=== PATIENT | female | born 1960 | race Caucasian/White ===

== ENCOUNTER → 2018-03-12 | Outpatient (CLI) | payer BC ==
[~2018-03-12] MED LIST: CHANTIX STARTER1 TAB PO; ECONAZOLE TP; FOLIC ACID 40400 MCG PO; LORTAB ELIX0.5 MG/ML PO; METHIMAZOLE5 MG PO; PRILOTC PO; REGLAN 5MG T5 MG/TAB PO; TAPAZOLE5 MG PO; VITAMIN C500 MG PO
== END ==
LOC: COL.RAD 08:48
DX: M25.551 Pain in right hip (principal)
CPT/HCPCS: J3301; Q9967

== ENCOUNTER → 2019-03-10 | Outpatient (CLI) | payer BC | LOC: COL.RAD 12:21 | DX: M16.11 Unilateral primary osteoarthritis, right hip (principal) | CPT/HCPCS: J3301; Q9967 ==

== ENCOUNTER 2019-10-15 12:41 | Inpatient (IN) | payer BC ==
[~2019-10-15] VITALS: Ht 172.7 cm; Wt 107.8 kg
[~2019-10-15 12:41] MED LIST changes: -LORTAB ELIX0.5 MG/ML PO; -METHIMAZOLE5 MG PO; +NORCO 325 MG-7.1 TAB PO; +TAPAZOLE10 MG PO
[2020-04-28] VITALS (12 sets, daily range): BP systolic 137–152; BP diastolic 57–84; PULSE 64–83; TEMP 97.3–97.8
[2020-04-28] MEDS ORDERED: SYMJEPI0.3 MG/0.3 IJ (03:28)
[2020-04-28] MEDS ORDERED: HCTZ 25MG TAB25 MG PO (03:29)
[2020-04-28] MEDS ORDERED: IRON TABLETS325 MG PO (03:29)
[2020-04-28] MEDS ORDERED: ZESTRIL 20MG TA20 MG PO (03:30)
[2020-04-28] MEDS ORDERED: GLUCOPHAGE XR500 M1 PO (03:30)
[2020-04-28] MEDS ORDERED: SLOW-MAG71.5 MG PO (03:32)
[2020-04-28] MEDS ORDERED: VITAMIN D 400400 IU PO (03:32)
[2020-04-28] MEDS ORDERED: DUTOPROL 12.5 M1 TE1 PO (03:32)
--- NOTE | 2020-04-28 06:05 | NUR ---
Pt. arrived to the floor. Pt. is A&OX3, assessment complete. INT started to lt. forearm. Pre-op procedures completed.
--- NOTE | 2020-04-28 12:10 | NUR ---
PATIENT BACK IN ROOM 331 POST OP RTH. ORIENTED BUT DROWSY. VSS. PACU REPORTS THEY HAD TO GIVE HER NARCAN DUE TO LONG PERIODS OF APNEA AFTER GETTING DILAUDID FOR PAIN. RATES PAIN IN RLE AT 3-4 ON PAIN SCALE. ORIENTED BUT DROWSY. RLE DRESSING IS CD&I WITH OCCLUSIVE TAPE. ICE PACK TO RIGHT HIP. TEDS & SCD'S TO BLE. POSITIVE PEDAL PULSES TO BLE. NO MARINELLI. NO C/O N/V. IV FLUIDS INFUSING INTO LEFT FORARM IV VIA PUMP. LIQUIDS AT BEDSIDE. HEAD TO TOE ASSESSMENT WNL. NO OTHER NEEDS. CALL LIGHT IN REACH.
--- NOTE | 2020-04-28 15:04 | NUR ---
[employer] met with patient to discuss discharge planning. Patient lives in [place] with her , Silver (ph#[phone]) and sees Dr. Evans for primary care. Patient obtains medications from [facility] in [place] with no difficulties. Patient has a front wheeled walker and no other DME. Patient reports she is normally independent with ADLS and plans to return home upon discharge. Patient does not have Advance Directives and is not interested in setting them up at this time. SW will continue to follow.
--- NOTE | 2020-04-28 20:00 | NUR ---
Report received, assumed care for shift commander. Assessment complete. VS stable. A&Ox3. Denies shortness of breath/nausea. Rating pain 4/10 on pain scale to right hip-described as constant ache-denies need for intervention. Dressing to right hip-bulky with foam tape-CDI. SCDs/TEDs bilat. Fresh ice pack applied. Plan of care discussed for this shift to include ambulation/pain control. Verbalizes understanding. Call light in reach. Will monitor.
[2020-04-29 03:58] VITALS: BP 138/62; PULSE 79; TEMP 98.5
--- NOTE | 2020-04-29 04:20 | NUR ---
Rested well this shift. PO oxycodone 5mg with good pain relief. Denied nausea/shortness of breath. Has been up out of bed-tolerated well. Tolerating PO-IV fluids NS@75ml/hr. SCD/DIANN bilat. Dressing to right hip CDI. Ice applied. Denies current needs. Call light in reach. Will monitor.
[2020-04-29 06:18] LABS: HEMOGLOBIN 11.7 g/dl (12.5-16.0)
[2020-04-29 07:55] VITALS: BP 145/69; PULSE 102; TEMP 98.7
--- NOTE | 2020-04-29 09:35 | NUR ---
PT UP TO RECLINER AFTER USING BR. SBAX1. AMBULATES WITH STEADY GAIT. PAIN CONTROLLED WITH PO MEDS. EATING AND DRINKING WITH NO N/V.
[2020-04-29 11:22] VITALS: BP 129/56; PULSE 84; TEMP 97.9
--- NOTE | 2020-04-29 12:08 | NUR ---
First visit from the playground equipment erector. No needs right now.
[2020-04-29 16:25] VITALS: BP 145/59; PULSE 81; TEMP 98.2
[2020-04-29 19:59] VITALS: BP 152/74; PULSE 101; TEMP 99.5
[2020-04-29 20:49] VITALS: TEMP 98.3
--- NOTE | 2020-04-29 20:55 | NUR ---
Patient ambulated approx 100 ft in hallways this evening. Assessment complete. Lungs clear. Heart sounds normal. Bowels active x4. Pulses present throughout. No edema noted. INT left forearm flushed without complications. Reports 5/10 right hip pain. Provided with PRN norco at this time. Right hip dressing CDI. Denies needs. call light in reach.
[2020-04-30 00:03] VITALS: BP 133/62; PULSE 96; TEMP 98.6
--- NOTE | 2020-04-30 01:45 | NUR ---
Resting in bed asleep. Call light in reach.
[2020-04-30 04:00] VITALS: BP 132/59; PULSE 105; TEMP 98.7
--- NOTE | 2020-04-30 06:21 | NUR ---
Patient required x1 dose of norco for pain control during night. Otherwise uneventful night. resting in bed this AM. Call light in reach.
[2020-04-30] MEDS ORDERED: CELEBREX 200MG200 MG PO (06:47)
[2020-04-30] MEDS ORDERED: ASPI325T6 PO (06:47)
[2020-04-30] MEDS ORDERED: SENOKOT S 50 MG1 TAB PO (06:48)
[2020-04-30] MEDS ORDERED: NORCO 325 MG-7.1 TAB PO (06:48)
[2020-04-30] MEDS ORDERED: ULTRAM 50MG TAB50 MG PO (06:48)
--- NOTE | 2020-04-30 06:48 | NUR ---
Report given to KEHINDE Riggs
[2020-04-30 07:03] VITALS: BP 135/60; PULSE 114; TEMP 98.4
[2020-04-30 07:23] LABS: HEMOGLOBIN 11.4 g/dl (12.5-16.0)
[2020-04-30 07:24] LABS: HEMATOCRIT 34.4 % (37.0-47.0)
--- NOTE | 2020-04-30 08:50 | NUR ---
PT UP TO RECLINER FOR BREAKFAST. DR WYMAN ROUNDED ON PATIENT PLAN ON DISCHARGE LATER THIS PM. PT AMBULATED WITH STEADY GAIT. PAIN WELL CONTROLLED WITH PO MEDS AT ONE TAB EA DOSE. PT EATING AND DRINKING WITH NO N/V.
[2020-04-30 11:46] VITALS: BP 102/46; PULSE 91; TEMP 98
--- NOTE | 2020-04-30 14:16 | NUR ---
DISCHARGE INSTRUCTIONS PROVIDED TO PT. REVIEWED INFORMATION AND ANSWERED QUESTIONS. PT TAKEN TO FRONT BY WHEEL CHAIR.
== END 2020-04-30 14:18 | disposition home or self-care (01) | DRG 470 ==
LOC: JCC 11-27 07:30
PROVIDERS: ADMIT Orthopaedic Surgery
PROC: 0SR904A Replacement of Right Hip Joint with Ceramic on Polyethylene Synthetic Substitute, Uncemented, Open Approach (ICD-10-PCS; principal; 2020-04-28 07:30)
DX: M16.11 Unilateral primary osteoarthritis, right hip (principal)
CPT/HCPCS: A4314; A9284; C1713; C1776; J0690; J1170; J2250; J2310; J2370; J2405; J2704; J7030; J7050; J7120

== ENCOUNTER → 2020-04-22 | Outpatient (CLI) | payer BC ==
[~2020-04-22] MED LIST changes: +LORTAB ELIX0.5 MG/ML PO; +METHIMAZOLE5 MG PO; -NORCO 325 MG-7.1 TAB PO; -TAPAZOLE10 MG PO
== END ==
LOC: COL.LAB 10:37
DX: Z01.812 Encounter for preprocedural laboratory examination (principal); Z01.83 Encounter for blood typing; M17.0 Bilateral primary osteoarthritis of knee; M16.0 Bilateral primary osteoarthritis of hip